=== PATIENT | female | born 1955 | race Caucasian/White ===

== ENCOUNTER → 2018-03-01 12:12 | Emergency (ER) | payer BC ==
[~2018-03-01 12:12] MED LIST: hydrOXYzine HCL TAB* 25 MG PO ONE; predniSONE TAB* 20 MG PO ONE
--- NOTE | 2018-03-01 14:39 | ED ---
Allergic Reaction/Systemic - HPI Summary HPI Summary: 62-year-old female presents with swelling to her face. She states that is very itchy. She denies any difficulty swallowing. She states they've been adjusting her dose of lisinopril. She'll states she is on hydrochlorothiazide for her blood pressure. She denies any shortness of breath. No chest pain. No bowel pain. No nausea vomiting. No sore throat. She never had this before. She took Benadryl with minimal relief. - History of Current Complaint Chief Complaint: EDAllergicReaction Time Seen by Provider: 03/01/18 14:15 Pain Intensity: 0 - Allergies/Home Medications Allergies/Adverse Reactions: Allergies Allergy/AdvReac Type Severity Reaction Status Date / Time MS Cefaclor [From Ceclor] Allergy Hives Verified 03/15/17 14:03 MS Nickel [Nickel] AdvReac Itching Verified 03/15/17 14:03 DARK CHOCOLATE AdvReac Agitation Uncoded 03/15/17 14:03 Home Medications: Home Medications Lisinopril/HCTZ 10/12.5(NF) [Zestoretic 10/12.5(NF)] 1 tab PO DAILY WITH MEAL [History Confirmed 03/01/18] PMH/Surg Hx/FS Hx/Imm Hx Endocrine/Hematology History: Denies: Hx Diabetes Cardiovascular History: Reports: Hx Hypertension Denies: Hx Pacemaker/ICD Respiratory History: Denies: Hx Asthma Sensory History: Denies: Hx Hearing Aid Psychiatric History: Denies: Hx Panic Disorder - Surgical History Surgery Procedure, Year, and Place: T&A, BOWEL ENDOMETRIOSIS X 3, BILATERAL BREAST BIOPSIES Infectious Disease History: No Infectious Disease History: Denies: Traveled Outside the [place] in Last 30 Days - Family History Known Family History: Positive: Non-Contributory - Social History Alcohol Use: None Substance Use Type: Reports: None Smoking Status (MU): Never Smoked Tobacco Review of Systems Negative: Fever Negative: Chest Pain Negative: Shortness Of Breath Positive: Other - facial edema All Other Systems Reviewed And Are Negative: Yes Physical Exam Triage Information Reviewed: Yes Vital Signs On Initial Exam: Initial Vitals Temp Pulse Resp BP Pulse Ox 98.9 F 68 16 154/77 100 03/01/18 12:16 03/01/18 12:16 03/01/18 12:16 03/01/18 12:16 03/01/18 12:16 Vital Signs Reviewed: Yes Appearance: Positive: Well-Appearing Skin: Positive: Warm, Dry Head/Face: Positive: Normal Head/Face Inspection, Other - edema to face, minimial edema to lower lip Eyes: Positive: Normal, Conjunctiva Clear ENT: Positive: Normal ENT inspection, Pharynx normal, TMs normal Respiratory/Lung Sounds: Positive: Clear to Auscultation, Breath Sounds Present Cardiovascular: Positive: Normal, RRR Abdomen Description: Positive: Nontender, Soft Bowel Sounds: Positive: Present Musculoskeletal: Positive: Normal Neurological: Positive: Normal Psychiatric: Positive: Normal Diagnostics - Vital Signs Vital Signs Temp Pulse Resp BP Pulse Ox 03/01/18 14:03 98.8 F 72 18 152/78 98 03/01/18 12:16 98.9 F 68 16 154/77 100 - Laboratory Lab Statement: Any lab studies that have been ordered have been reviewed, and results considered in the medical decision making process. Allergic Reaction Course/Dx - Course Course Of Treatment: 62-year-old female presents with swelling to her face. She states that is very itchy. She denies any difficulty swallowing. She states they've been adjusting her dose of lisinopril. She'll states she is on hydrochlorothiazide for her blood pressure. She denies any shortness of breath. No chest pain. No bowel pain. No nausea vomiting. No sore throat. She never had this before. She took Benadryl with minimal relief. On exam has edema noted to the face. Minimal edema noted lower lip. Pharynx normal. Lungs clear to auscultation. Discussed likely due to the lisinopril. Told to stop lisinopril and we'll increase the dose hydrochlorothiazide. We'll place on a short course of prednisone and given hydroxyzine for itching. Patient understands agrees with plan. - Diagnoses Differential Diagnosis/HQI/PQRI: Positive: Angioedema, Local Allergic Reaction, Urticaria Provider Diagnoses: Facial edema Discharge - Sign-Out/Discharge Documenting (check all that apply): Patient Departure - Discharge Plan Condition: Good Disposition: HOME Prescriptions: Hydrochlorothiazide TAB* [Hydrodiuril TAB*] 25 mg PO DAILY #10 tab hydrOXYzine HCL TAB* [Atarax 25 MG TAB*] 25 mg PO QID PRN #16 tab PRN Reason: Itching predniSONE TAB* [Deltasone TAB*] 50 mg PO DAILY #4 tab Referrals: Mario Alberto Ash MD [Primary Care Provider] - Additional Instructions: stop lisinopril take hydrochlorothiazide daily take prednisone once a day take hydroxyzine every 6 hours as needed for itchiness follow up with primary within 5 days return to ED if develop any new or worsening symptoms - Billing Disposition and Condition Condition: GOOD Disposition: Home
[2018-03-01 14:56] VITALS: BP 114/71
== END | disposition home or self-care (01) ==
LOC: ED 12:12
DX: R60.9 Edema, unspecified (principal); I10 Essential (primary) hypertension
CPT/HCPCS: 99282; A9270-GY; J7512